=== PATIENT | female | born 1950 | race Caucasian/White ===

== ENCOUNTER 2022-09-13 10:42 | Emergency (ER) | payer OTHER ==
[~2022-09-13] VITALS: Ht 157.5 cm; Wt 54.4 kg
[2022-09-13] MEDS ORDERED: VITAMIN B-122500 MCG SL (11:00)
[2022-09-13] MEDS ORDERED: AMLODIPINE BESYL5 MG PO (11:00)
== END 2022-09-13 14:17 | disposition home or self-care (01) ==
LOC: ER 10:42
DX: K05.10 Chronic gingivitis, plaque induced (principal); Z91.041 Radiographic dye allergy status